=== PATIENT | male | born 1970 | race Caucasian/White ===

== ENCOUNTER → 2016-11-04 | Outpatient (REF) | LOC: ZLAB.WCH 10:42 | DX: Z01.89 Encounter for other specified special examinations (principal) ==

== ENCOUNTER → 2017-10-27 | Outpatient (REF) | LOC: ZLAB.WCH 16:08 | DX: Z01.89 Encounter for other specified special examinations (principal) ==

== ENCOUNTER → 2018-05-11 | Outpatient (REF) ==
[2018-05-11 15:26] LABS: THYROID STIMULATING HORMONE 2.94 uIU/mL (0.465-4.680)
== END ==
LOC: ZLAB.WCH 14:30
PROVIDERS: Family Medicine
DX: Z01.89 Encounter for other specified special examinations (principal)

== ENCOUNTER → 2018-08-10 | Outpatient (REF) | LOC: ZLAB.WCH 16:16 | DX: Z01.89 Encounter for other specified special examinations (principal) ==

== ENCOUNTER → 2018-09-21 | Outpatient (CLI) | payer OTHER | LOC: COL.RAD 09-15 14:00 | DX: M19.012 Primary osteoarthritis, left shoulder (principal); M75.102 Unspecified rotator cuff tear or rupture of left shoulder, not specified as traumatic; S46.812A Strain of other muscles, fascia and tendons at shoulder and upper arm level, left arm, initial encounter ==